=== PATIENT | male | born 1970 | race Caucasian/White ===

== ENCOUNTER 2021-01-03 11:15 | Inpatient (IN) | payer OTHER ==
[2021-01-03 12:43] VITALS: BMI 31.6
[2021-01-03] MEDS ORDERED: ONDANSETRON *ODT* 4 MG TABLET SL PRN (13:32)
[2021-01-03] MEDS ORDERED: chlordiazePOXIDE HCL 25 MG CAPSULE PO PRN (13:32)
[2021-01-03] MEDS ORDERED: MENTHOL/PHENOL 1 EACH UD MM PRN (13:32)
[2021-01-03] MEDS ORDERED: NICOTINE POLACRILEX 2 MG GUM BUC PRN (13:32)
[2021-01-03] MEDS ORDERED: ACETAMINOPHEN 325 MG TABLET (FP) PO PRN ×2 (13:32)
[2021-01-03] MEDS ORDERED: MAGNESIUM CITRATE 300 ML BOTTLE PO PRN (13:32)
[2021-01-03] MEDS ORDERED: BISMUTH SUBSALICYLATE 262 MG/15 ML BTL PO PRN (13:32)
[2021-01-03] MEDS ORDERED: MAG HYDROX/AL HYDROX/SIMETH 30 ML UNIT-DOSE CUP PO PRN (13:32)
[2021-01-03] MEDS ORDERED: NALOXONE (NARCAN) HCL 4 MG/0.1 ML SPRAY NS PRN (13:32)
[2021-01-03] MEDS ORDERED: MAGNESIUM HYDROX 2400MG/30ML ORAL SUSPENSION 30 ML CUP PO PRN (13:32)
[2021-01-03] MEDS: PANTOPRAZOLE 40 MG TABLET PO SCH (14:12)
[2021-01-03] MEDS: hydrOXYzine PAMOATE 25 MG CAPSULE (FP) PO SCH ×3 (14:12→22:02)
[2021-01-03] MEDS: PRENATAL VITAMINS W/ FOLIC ACID TABLET (FP) PO SCH (14:13)
[2021-01-03] MEDS: NICOTINE 21 MG/24 HOURS TOPICAL PATCH TD SCH (14:18)
[2021-01-03 14:48] LABS: HEMATOCRIT 40.2 % (35.4-49); HEMOGLOBIN 13.7 GM/dL (11.7-16.9); MCH 32.4 pg (25.7-33.7); MEAN CELL VOLUME 95.4 fl (80-96); MEAN PLT VOLUME 9.6 fl (7.5-11.1); PLATELET COUNT 247 K/MM3 (134-434); RBC 4.21 M/mm3 (4.00-5.60); RDW 12.6 % (11.9-15.9); WHITE BLOOD COUNT 7.3 K/mm3 (4.0-10.0)
[2021-01-03 14:52] LABS: ALBUMIN 3.4 g/dl (3.4-5.0); CALCIUM 8.8 mg/dL (8.5-10.1)
[2021-01-03 14:53] LABS: BLOOD UREA NITROGEN 3.7 mg/dL (7-18)
[2021-01-03 14:56] LABS: CREATININE 0.7 mg/dL (0.55-1.3)
[2021-01-03 14:57] LABS: BILIRUBIN,TOTAL 0.4 mg/dL (0.2-1); TOT PROT 6.5 g/dl (6.4-8.2)
[2021-01-03] MEDS: chlordiazePOXIDE HCL 25 MG CAPSULE PO SCH ×2 (17:27→22:02)
[2021-01-03] MEDS ORDERED: GABAPENTIN 300 MG CAPSULE PO SCH (22:00)
[2021-01-03] MEDS: MELATONIN 5 MG TABLETS PO SCH (22:01)
[2021-01-03] MEDS: GABAPENTIN 100 MG CAPSULE PO SCH (22:02)
[2021-01-03] MEDS: THIAMINE HCL 100 MG TABLET (FP) PO SCH (22:02)
[2021-01-03] MEDS: PERPHENAZINE 4 MG TABLET PO SCH (22:03)
[2021-01-03] MEDS: METHOCARBAMOL 500 MG TABLET PO PRN (22:05)
[2021-01-04] MEDS ORDERED: METHADONE HCL 40 MG DISPERSABLE TABLET ONE (05:22)
[2021-01-04] MEDS ORDERED: METHADONE HCL 10 MG TABLET ONE (05:22)
[2021-01-04] MEDS: METHADONE 40 MG, METHADONE 10 MG PO SCH (05:34)
[2021-01-04] MEDS: GABAPENTIN 100 MG CAPSULE PO SCH ×3 (05:34→22:07)
[2021-01-04] MEDS: hydrOXYzine PAMOATE 25 MG CAPSULE (FP) PO SCH ×2 (05:35→10:04)
[2021-01-04] MEDS: chlordiazePOXIDE HCL 25 MG CAPSULE PO SCH ×4 (05:36→22:06)
[2021-01-04] MEDS: PERPHENAZINE 4 MG TABLET PO SCH ×3 (05:38→22:07)
[2021-01-04] MEDS ORDERED: METHADONE HCL 10 MG TABLET PO SCH (06:00)
[2021-01-04] MEDS: PRENATAL VITAMINS W/ FOLIC ACID TABLET (FP) PO SCH (10:04)
[2021-01-04] MEDS: NICOTINE 21 MG/24 HOURS TOPICAL PATCH TD SCH (10:04)
[2021-01-04] MEDS: PANTOPRAZOLE 40 MG TABLET PO SCH (10:04)
[2021-01-04] MEDS: IBUPROFEN 400 MG TABLET (FP) PO PRN (13:06)
[2021-01-04] MEDS: hydrOXYzine PAMOATE 25 MG CAPSULE (FP) PO PRN (13:06)
[2021-01-04] MEDS: THIAMINE HCL 100 MG TABLET (FP) PO SCH (22:07)
[2021-01-04] MEDS: MELATONIN 5 MG TABLETS PO SCH (22:07)
[2021-01-05] MEDS ORDERED: METHADONE HCL 40 MG DISPERSABLE TABLET ONE (04:21)
[2021-01-05] MEDS ORDERED: METHADONE HCL 10 MG TABLET ONE (04:21)
[2021-01-05] MEDS: IBUPROFEN 400 MG TABLET (FP) PO PRN ×2 (04:40→17:19)
[2021-01-05] MEDS: GABAPENTIN 100 MG CAPSULE PO SCH ×3 (05:19→22:28)
[2021-01-05] MEDS: chlordiazePOXIDE HCL 25 MG CAPSULE PO SCH ×4 (05:19→22:29)
[2021-01-05] MEDS: METHADONE 40 MG, METHADONE 10 MG PO SCH (05:19)
[2021-01-05] MEDS: METHOCARBAMOL 500 MG TABLET PO PRN ×2 (05:21→22:31)
[2021-01-05] MEDS: PERPHENAZINE 4 MG TABLET PO SCH ×3 (05:24→22:30)
[2021-01-05] MEDS: NICOTINE 21 MG/24 HOURS TOPICAL PATCH TD SCH (09:31)
[2021-01-05] MEDS: PANTOPRAZOLE 40 MG TABLET PO SCH (10:01)
[2021-01-05] MEDS: PRENATAL VITAMINS W/ FOLIC ACID TABLET (FP) PO SCH (10:01)
[2021-01-05] MEDS ORDERED: LIDOCAINE 5% TOPICAL PATCH TP SCH (11:15)
[2021-01-05] MEDS ORDERED: BACITRACIN 0.9 GM PACKET TP SCH (15:00)
[2021-01-05] MEDS ORDERED: LIDOCAINE PATCH REMOVAL MC SCH (22:00)
[2021-01-05] MEDS: THIAMINE HCL 100 MG TABLET (FP) PO SCH (22:28)
[2021-01-05] MEDS: MELATONIN 5 MG TABLETS PO SCH (22:28)
[2021-01-05] MEDS: hydrOXYzine PAMOATE 25 MG CAPSULE (FP) PO PRN (22:31)
[2021-01-06] MEDS ORDERED: chlordiazePOXIDE HCL 10 MG CAPSULE PO PRN
[2021-01-06] MEDS ORDERED: METHADONE HCL 40 MG DISPERSABLE TABLET ONE (02:34)
[2021-01-06] MEDS ORDERED: METHADONE HCL 10 MG TABLET ONE (02:34)
[2021-01-06] MEDS ORDERED: chlordiazePOXIDE HCL 10 MG CAPSULE PO SCH (05:00)
[2021-01-06] MEDS: METHADONE 40 MG, METHADONE 10 MG PO SCH (05:41)
[2021-01-06] MEDS: GABAPENTIN 100 MG CAPSULE PO SCH (05:41)
[2021-01-06] MEDS: PERPHENAZINE 4 MG TABLET PO SCH (05:44)
[2021-01-06] MEDS: IBUPROFEN 400 MG TABLET (FP) PO PRN (06:41)
[2021-01-06 09:17] VITALS: BP 107/64; PULSE 82; TEMP 96.6
[2021-01-07] MEDS ORDERED: chlordiazePOXIDE HCL 10 MG CAPSULE PO SCH (05:00)
[2021-01-07 06:06] LABS: SARS-CoV-2 NAA Not Detected (Not Detected)
[2021-01-08] MEDS ORDERED: chlordiazePOXIDE HCL 10 MG CAPSULE PO ONE (05:00)
== END 2021-01-06 09:27 | disposition other institution (70) | DRG 773 ==
LOC: YASAS 11:15 → Y3N 13:04
PROVIDERS: ADMIT Allergy & Immunology; ATTEND Allergy & Immunology
PROC: HZ2ZZZZ Detoxification Services for Substance Abuse Treatment (ICD-10-PCS; principal; 2021-01-03)
DX: F10.230 Alcohol dependence with withdrawal, uncomplicated (principal); F14.20 Cocaine dependence, uncomplicated; F11.20 Opioid dependence, uncomplicated; F17.210 Nicotine dependence, cigarettes, uncomplicated; F25.9 Schizoaffective disorder, unspecified; F19.24 Other psychoactive substance dependence with psychoactive substance-induced mood disorder; K21.9 Gastro-esophageal reflux disease without esophagitis; M54.2 Cervicalgia; M54.6 Pain in thoracic spine; G89.29 Other chronic pain; Z98.84 Bariatric surgery status
CPT/HCPCS: 36415; 80053; 85027; 86780; 93005; 93010; C9803; Q0162; U0003; U0005

== ENCOUNTER 2021-09-26 15:34 | Inpatient (IN) | payer OTHER ==
[2021-09-26 19:22] VITALS: BMI 33.2
[2021-09-26] MEDS ORDERED: BISMUTH SUBSALICYLATE 524 MG/30 ML PO PRN (19:46)
[2021-09-26] MEDS ORDERED: MAGNESIUM CITRATE 300 ML BOTTLE PO PRN (19:46)
[2021-09-26] MEDS ORDERED: MAGNESIUM HYDROX 2400MG/30ML ORAL SUSPENSION 30 ML CUP PO PRN (19:46)
[2021-09-26] MEDS ORDERED: hydrOXYzine PAMOATE 25 MG CAPSULE (FP) PO PRN (19:46)
[2021-09-26] MEDS ORDERED: ONDANSETRON *ODT* 4 MG TABLET SL PRN (19:46)
[2021-09-26] MEDS ORDERED: MAG HYDROX/AL HYDROX/SIMETH 30 ML UNIT-DOSE CUP PO PRN (19:46)
[2021-09-26] MEDS ORDERED: METHOCARBAMOL 500 MG TABLET PO PRN (19:46)
[2021-09-26] MEDS ORDERED: ACETAMINOPHEN 325 MG TABLET (FP) PO PRN ×2 (19:46)
[2021-09-26] MEDS ORDERED: MENTHOL/PHENOL 1 EACH UD MM PRN (19:46)
[2021-09-27] MEDS ORDERED: chlordiazePOXIDE HCL 25 MG CAPSULE ONE (02:19)
[2021-09-27] MEDS ORDERED: IBUPROFEN 400 MG TABLET (FP) PO ONE (02:19)
[2021-09-27] MEDS: MELATONIN 5 MG TABLETS PO SCH ×2 (02:23→22:21)
[2021-09-27] MEDS: THIAMINE HCL 100 MG TABLET (FP) PO SCH ×2 (02:23→22:21)
[2021-09-27] MEDS: chlordiazePOXIDE HCL 25 MG CAPSULE PO SCH ×5 (02:24→22:30)
[2021-09-27] MEDS: IBUPROFEN 400 MG TABLET (FP) PO PRN ×2 (02:25→17:46)
[2021-09-27] MEDS ORDERED: methaDONE HCL 10 MG TABLET ONE (09:20)
[2021-09-27] MEDS ORDERED: methaDONE HCL 10 MG TABLET PO ONE (10:00)
[2021-09-27] MEDS: PRENATAL VITAMINS W/ FOLIC ACID TABLET (FP) PO SCH (10:21)
[2021-09-27 10:31] LABS: HEMATOCRIT 34.1 % (35.4-49); HEMOGLOBIN 11.1 GM/dL (11.7-16.9); MCH 30.6 pg (25.7-33.7); MCHC 32.7 g/dl (32.0-35.9); MEAN CELL VOLUME 93.6 fl (80-96); MEAN PLT VOLUME 9.1 fl (7.5-11.1); PLATELET COUNT 261 10^3/uL (134-434); RBC 3.64 M/mm3 (4.00-5.60); RDW 14.2 % (11.9-15.9); WHITE BLOOD COUNT 6.3 K/mm3 (4.0-10.0)
[2021-09-27] MEDS ORDERED: NICOTINE 10 MG CARTRIDGE (INHALER) IH PRN (10:36)
[2021-09-27] MEDS: NICOTINE POLACRILEX 2 MG GUM BUC PRN (10:53)
[2021-09-27] MEDS: NICOTINE 14 MG/24 HOURS TOPICAL PATCH TD SCH (10:53)
[2021-09-27] MEDS: SERTRALINE HCL 50 MG TABLET (FP) PO SCH (10:54)
[2021-09-27] MEDS: ARIPiprazole 10 MG TABLET PO SCH (10:54)
[2021-09-27] MEDS: GABAPENTIN 400 MG CAPSULE PO SCH ×2 (10:54→22:20)
[2021-09-27 10:55] LABS: CALCIUM 9.3 mg/dL (8.5-10.1)
[2021-09-27 10:57] LABS: ALBUMIN 3.1 g/dl (3.4-5.0); BLOOD UREA NITROGEN 10.4 mg/dL (7-18)
[2021-09-27 10:59] LABS: CREATININE 0.7 mg/dL (0.55-1.3)
[2021-09-27 11:01] LABS: BILIRUBIN,TOTAL 0.8 mg/dL (0.2-1); TOT PROT 5.8 g/dl (6.4-8.2)
[2021-09-27] MEDS: PERPHENAZINE 4 MG TABLET PO SCH ×2 (12:10→22:21)
[2021-09-27] MEDS: chlordiazePOXIDE HCL 25 MG CAPSULE PO PRN ×2 (14:53→22:21)
[2021-09-27] MEDS ORDERED: FAMOTIDINE 20 MG TABLET PO SCH (22:00)
[2021-09-27] MEDS ORDERED: traZODone HCL 50 MG TABLET (FP) PO SCH (22:00)
[2021-09-28] MEDS ORDERED: methaDONE HCL 10 MG TABLET ONE (04:01)
[2021-09-28] MEDS ORDERED: chlordiazePOXIDE HCL 25 MG CAPSULE PO SCH (05:00)
[2021-09-28] MEDS: IBUPROFEN 400 MG TABLET (FP) PO PRN (05:28)
[2021-09-28] MEDS: NICOTINE POLACRILEX 2 MG GUM BUC PRN (05:55)
[2021-09-28] MEDS ORDERED: methaDONE HCL 40 MG DISPERSABLE TABLET PO SCH (06:00)
[2021-09-28 09:20] VITALS: BP 120/70; PULSE 84; TEMP 98.4
[2021-09-28] MEDS: NICOTINE 14 MG/24 HOURS TOPICAL PATCH TD SCH (09:29)
[2021-09-28] MEDS ORDERED: PANTOPRAZOLE 40 MG TABLET PO SCH (10:00)
[2021-09-28] MEDS: ARIPiprazole 10 MG TABLET PO SCH (10:37)
[2021-09-28] MEDS: GABAPENTIN 400 MG CAPSULE PO SCH (10:37)
[2021-09-28] MEDS: PRENATAL VITAMINS W/ FOLIC ACID TABLET (FP) PO SCH (10:37)
[2021-09-28] MEDS: SERTRALINE HCL 50 MG TABLET (FP) PO SCH (10:38)
[2021-09-28] MEDS: PERPHENAZINE 4 MG TABLET PO SCH (10:38)
[2021-09-29] MEDS ORDERED: chlordiazePOXIDE HCL 10 MG CAPSULE PO PRN
[2021-09-29] MEDS ORDERED: chlordiazePOXIDE HCL 10 MG CAPSULE PO SCH (05:00)
[2021-09-30] MEDS ORDERED: chlordiazePOXIDE HCL 10 MG CAPSULE PO SCH (05:00)
[2021-10-01] MEDS ORDERED: chlordiazePOXIDE HCL 10 MG CAPSULE PO ONE (05:00)
== END 2021-09-28 10:40 | disposition left against medical advice (07) | DRG 894 ==
LOC: YASAS 15:34 → Y6N 09-27 02:08
PROVIDERS: ADMIT Allergy & Immunology; ATTEND Allergy & Immunology
PROC: HZ2ZZZZ Detoxification Services for Substance Abuse Treatment (ICD-10-PCS; principal; 2021-09-27)
DX: F10.230 Alcohol dependence with withdrawal, uncomplicated (principal); F11.20 Opioid dependence, uncomplicated; F14.20 Cocaine dependence, uncomplicated; F19.282 Other psychoactive substance dependence with psychoactive substance-induced sleep disorder; E87.0 Hyperosmolality and hypernatremia; F17.210 Nicotine dependence, cigarettes, uncomplicated; F25.9 Schizoaffective disorder, unspecified; F19.24 Other psychoactive substance dependence with psychoactive substance-induced mood disorder; K21.9 Gastro-esophageal reflux disease without esophagitis; R73.9 Hyperglycemia, unspecified; G89.29 Other chronic pain; Z98.84 Bariatric surgery status; Z56.0 Unemployment, unspecified
CPT/HCPCS: 36415; 80053; 85027; 86780; C9803; U0003; U0005

== ENCOUNTER 2021-10-16 12:45 | Inpatient (IN) | payer OTHER ==
[2021-10-16] MEDS ORDERED: ONDANSETRON *ODT* 4 MG TABLET SL PRN (14:37)
[2021-10-16] MEDS ORDERED: BISMUTH SUBSALICYLATE 262 MG/15 ML BTL PO PRN (14:37)
[2021-10-16] MEDS ORDERED: MAGNESIUM HYDROX 2400MG/30ML ORAL SUSPENSION 30 ML CUP PO PRN (14:37)
[2021-10-16] MEDS ORDERED: NICOTINE 10 MG CARTRIDGE (INHALER) IH PRN (14:37)
[2021-10-16] MEDS ORDERED: ACETAMINOPHEN 325 MG TABLET (FP) PO PRN (14:37)
[2021-10-16] MEDS ORDERED: MENTHOL/PHENOL 1 EACH UD MM PRN (14:37)
[2021-10-16] MEDS ORDERED: LOPERAMIDE HCL 2 MG CAPSULE PO PRN (14:37)
[2021-10-16] MEDS ORDERED: IBUPROFEN 400 MG TABLET (FP) PO PRN (14:37)
[2021-10-16] MEDS ORDERED: MAGNESIUM CITRATE 300 ML BOTTLE PO PRN (14:37)
[2021-10-16] MEDS ORDERED: chlordiazePOXIDE HCL 25 MG CAPSULE PO PRN (14:37)
[2021-10-16] MEDS ORDERED: MAG HYDROX/AL HYDROX/SIMETH 30 ML UNIT-DOSE CUP PO PRN (14:37)
[2021-10-16 15:17] VITALS: BMI 33.3
[2021-10-16] MEDS ORDERED: chlordiazePOXIDE HCL 25 MG CAPSULE ONE (16:18)
[2021-10-16] MEDS: chlordiazePOXIDE HCL 25 MG CAPSULE PO SCH ×4 (16:20→22:18)
[2021-10-16] MEDS: hydrOXYzine PAMOATE 25 MG CAPSULE (FP) PO SCH ×2 (17:17→22:19)
[2021-10-16] MEDS: THIAMINE HCL 100 MG TABLET (FP) PO SCH (22:19)
[2021-10-16] MEDS: MELATONIN 5 MG TABLETS PO SCH (22:19)
[2021-10-16] MEDS: METHOCARBAMOL 500 MG TABLET PO PRN (22:20)
[2021-10-17] MEDS: METHOCARBAMOL 500 MG TABLET PO PRN ×2 (05:12→22:08)
[2021-10-17] MEDS: hydrOXYzine PAMOATE 25 MG CAPSULE (FP) PO SCH ×5 (05:12→22:08)
[2021-10-17] MEDS: chlordiazePOXIDE HCL 25 MG CAPSULE PO SCH ×4 (05:12→22:09)
[2021-10-17] MEDS ORDERED: methaDONE HCL 10 MG TABLET PO SCH (09:45)
[2021-10-17] MEDS: PANTOPRAZOLE 40 MG TABLET PO SCH (10:25)
[2021-10-17] MEDS: PRENATAL VITAMINS W/ FOLIC ACID TABLET (FP) PO SCH (10:25)
[2021-10-17] MEDS ORDERED: methaDONE HCL 10 MG TABLET ONE (10:41)
[2021-10-17 12:23] LABS: HEMATOCRIT 37.5 % (35.4-49); HEMOGLOBIN 12.4 GM/dL (11.7-16.9); MCH 30.7 pg (25.7-33.7); MCHC 33.2 g/dl (32.0-35.9); MEAN CELL VOLUME 92.6 fl (80-96); MEAN PLT VOLUME 9.1 fl (7.5-11.1); PLATELET COUNT 267 10^3/uL (134-434); RBC 4.05 M/mm3 (4.00-5.60); RDW 14.2 % (11.9-15.9); WHITE BLOOD COUNT 5.6 K/mm3 (4.0-10.0)
[2021-10-17 12:39] LABS: CALCIUM 8.9 mg/dL (8.5-10.1)
[2021-10-17 12:40] LABS: BLOOD UREA NITROGEN 9.1 mg/dL (7-18)
[2021-10-17 12:42] LABS: CREATININE 0.8 mg/dL (0.55-1.3)
[2021-10-17 12:44] LABS: BILIRUBIN,TOTAL 0.8 mg/dL (0.2-1); TOT PROT 6.1 g/dl (6.4-8.2)
[2021-10-17] MEDS: NICOTINE 21 MG/24 HOURS TOPICAL PATCH TD SCH (13:20)
[2021-10-17] MEDS: SERTRALINE HCL 50 MG TABLET (FP) PO SCH (14:30)
[2021-10-17] MEDS: PERPHENAZINE 4 MG TABLET PO SCH ×3 (14:30→22:08)
[2021-10-17] MEDS: ACETAMINOPHEN 325 MG TABLET (FP) PO PRN (22:07)
[2021-10-17] MEDS: MELATONIN 5 MG TABLETS PO SCH (22:07)
[2021-10-17] MEDS: THIAMINE HCL 100 MG TABLET (FP) PO SCH (22:08)
[2021-10-18] MEDS ORDERED: chlordiazePOXIDE HCL 10 MG CAPSULE PO PRN
[2021-10-18] MEDS ORDERED: methaDONE HCL 10 MG TABLET ONE (04:18)
[2021-10-18 05:07] LABS: SARS-CoV-2 NAA Not Detected (Not Detected)
[2021-10-18] MEDS: hydrOXYzine PAMOATE 25 MG CAPSULE (FP) PO SCH ×3 (05:33→14:09)
[2021-10-18] MEDS: chlordiazePOXIDE HCL 10 MG CAPSULE PO SCH ×2 (05:33→10:10)
[2021-10-18] MEDS: ACETAMINOPHEN 325 MG TABLET (FP) PO PRN (05:39)
[2021-10-18] MEDS ORDERED: ARIPiprazole 15 MG TABLET PO SCH (10:00)
[2021-10-18] MEDS: PRENATAL VITAMINS W/ FOLIC ACID TABLET (FP) PO SCH (10:08)
[2021-10-18] MEDS: SERTRALINE HCL 50 MG TABLET (FP) PO SCH (10:08)
[2021-10-18] MEDS: PANTOPRAZOLE 40 MG TABLET PO SCH (10:08)
[2021-10-18] MEDS: NICOTINE 21 MG/24 HOURS TOPICAL PATCH TD SCH (10:11)
[2021-10-18] MEDS: PERPHENAZINE 4 MG TABLET PO SCH ×2 (10:12→14:14)
[2021-10-18 13:17] LABS: GLUCOSE,FASTING 55 mg/dL (74-106)
[2021-10-18 14:13] LABS: ALK PHOS 174 U/L (45-117)
[2021-10-18 18:21] VITALS: BP 124/71; PULSE 83; TEMP 98
[2021-10-19] MEDS ORDERED: chlordiazePOXIDE HCL 10 MG CAPSULE PO SCH (05:00)
[2021-10-20] MEDS ORDERED: chlordiazePOXIDE HCL 10 MG CAPSULE PO ONE (05:00)
== END 2021-10-18 18:00 | disposition left against medical advice (07) | DRG 894 ==
LOC: YASAS 12:45 → Y3N 16:35
PROVIDERS: ADMIT Allergy & Immunology; ATTEND Allergy & Immunology
PROC: HZ2ZZZZ Detoxification Services for Substance Abuse Treatment (ICD-10-PCS; principal; 2021-10-16)
DX: F10.230 Alcohol dependence with withdrawal, uncomplicated (principal); F11.20 Opioid dependence, uncomplicated; F14.20 Cocaine dependence, uncomplicated; F19.282 Other psychoactive substance dependence with psychoactive substance-induced sleep disorder; F17.210 Nicotine dependence, cigarettes, uncomplicated; F19.24 Other psychoactive substance dependence with psychoactive substance-induced mood disorder; F25.9 Schizoaffective disorder, unspecified; K21.9 Gastro-esophageal reflux disease without esophagitis; R73.9 Hyperglycemia, unspecified; E66.09 Other obesity due to excess calories; Z68.33 Body mass index [BMI] 33.0-33.9, adult
CPT/HCPCS: 36415; 80053; 82947; 83036; 84075; 85027; 86780; 93005; 93010; C9803; U0003; U0005

== ENCOUNTER 2021-11-15 10:33 | Inpatient (IN) | payer OTHER ==
[2021-11-15] MEDS ORDERED: ACETAMINOPHEN 325 MG TABLET (FP) PO PRN ×2 (11:42)
[2021-11-15] MEDS ORDERED: MENTHOL/PHENOL 1 EACH UD MM PRN (11:42)
[2021-11-15] MEDS ORDERED: BISMUTH SUBSALICYLATE 262 MG/15 ML BTL PO PRN (11:42)
[2021-11-15] MEDS ORDERED: MAGNESIUM CITRATE 300 ML BOTTLE PO PRN (11:42)
[2021-11-15] MEDS ORDERED: LOPERAMIDE HCL 2 MG CAPSULE PO PRN (11:42)
[2021-11-15] MEDS ORDERED: MAGNESIUM HYDROX 2400MG/30ML ORAL SUSPENSION 30 ML CUP PO PRN (11:42)
[2021-11-15 12:12] VITALS: BMI 31.3
[2021-11-15] MEDS ORDERED: TRIMETHOBENZAMIDE HCL 300 MG CAPSULE PO PRN ×2 (12:45→13:30)
[2021-11-15] MEDS: chlordiazePOXIDE HCL 25 MG CAPSULE PO PRN (13:27)
[2021-11-15] MEDS ORDERED: hydrOXYzine PAMOATE 25 MG CAPSULE (FP) PO SCH (14:00)
[2021-11-15] MEDS ORDERED: TRIMETHOBENZAMIDE HCL 200MG/2ML INJ IM PRN (14:01)
[2021-11-15] MEDS: GABAPENTIN 400 MG CAPSULE PO SCH ×2 (15:41→22:30)
[2021-11-15] MEDS: NICOTINE 14 MG/24 HOURS TOPICAL PATCH TD SCH (15:42)
[2021-11-15] MEDS: PRENATAL VITAMINS W/ FOLIC ACID TABLET (FP) PO SCH (15:43)
[2021-11-15 17:18] LABS: HEMATOCRIT 44.3 % (35.4-49); HEMOGLOBIN 14.4 GM/dL (11.7-16.9); MCH 30.3 pg (25.7-33.7); MCHC 32.6 g/dl (32.0-35.9); MEAN CELL VOLUME 92.8 fl (80-96); MEAN PLT VOLUME 8.9 fl (7.5-11.1); PLATELET COUNT 289 10^3/uL (134-434); RBC 4.78 M/mm3 (4.00-5.60); RDW 15.1 % (11.9-15.9); WHITE BLOOD COUNT 6.8 K/mm3 (4.0-10.0)
[2021-11-15 17:20] LABS: CALCIUM 8.8 mg/dL (8.5-10.1)
[2021-11-15 17:21] LABS: ALBUMIN 3.8 g/dl (3.4-5.0); BLOOD UREA NITROGEN 14.2 mg/dL (7-18)
[2021-11-15 17:24] LABS: CREATININE 0.9 mg/dL (0.55-1.3)
[2021-11-15 17:25] LABS: TOT PROT 6.7 g/dl (6.4-8.2)
[2021-11-15] MEDS: chlordiazePOXIDE HCL 25 MG CAPSULE PO SCH ×2 (18:05→22:26)
[2021-11-15] MEDS: METHOCARBAMOL 500 MG TABLET PO PRN (18:06)
[2021-11-15] MEDS: THIAMINE HCL 100 MG TABLET (FP) PO SCH (22:27)
[2021-11-15] MEDS: MELATONIN 5 MG TABLETS PO SCH (22:27)
[2021-11-15] MEDS: IBUPROFEN 400 MG TABLET (FP) PO PRN (22:28)
[2021-11-15] MEDS: PERPHENAZINE 4 MG TABLET PO SCH (23:41)
[2021-11-16] MEDS: chlordiazePOXIDE HCL 25 MG CAPSULE PO SCH ×4 (05:43→22:22)
[2021-11-16] MEDS: GABAPENTIN 400 MG CAPSULE PO SCH ×3 (06:58→21:35)
[2021-11-16] MEDS: NICOTINE 14 MG/24 HOURS TOPICAL PATCH TD SCH (10:09)
[2021-11-16] MEDS: SERTRALINE HCL 50 MG TABLET (FP) PO SCH (10:09)
[2021-11-16] MEDS: PANTOPRAZOLE 40 MG TABLET PO SCH (10:09)
[2021-11-16] MEDS: PRENATAL VITAMINS W/ FOLIC ACID TABLET (FP) PO SCH (10:10)
[2021-11-16] MEDS: PERPHENAZINE 4 MG TABLET PO SCH ×4 (10:11→21:35)
[2021-11-16] MEDS: NICOTINE 10 MG CARTRIDGE (INHALER) IH PRN (10:13)
[2021-11-16] MEDS ORDERED: methaDONE HCL 10 MG TABLET PO SCH (10:15)
[2021-11-16] MEDS ORDERED: methaDONE HCL 10 MG TABLET ONE (10:50)
[2021-11-16] MEDS: ARIPiprazole 5 MG TABLET PO SCH (12:20)
[2021-11-16] MEDS: IBUPROFEN 400 MG TABLET (FP) PO PRN ×2 (12:20→21:43)
[2021-11-16] MEDS: MELATONIN 5 MG TABLETS PO SCH (21:33)
[2021-11-16] MEDS: THIAMINE HCL 100 MG TABLET (FP) PO SCH (21:34)
[2021-11-17] MEDS ORDERED: methaDONE HCL 10 MG TABLET ONE (04:37)
[2021-11-17] MEDS: chlordiazePOXIDE HCL 25 MG CAPSULE PO SCH ×4 (05:27→22:06)
[2021-11-17] MEDS: GABAPENTIN 400 MG CAPSULE PO SCH ×3 (05:27→21:55)
[2021-11-17 08:08] LABS: SARS-CoV-2 NAA Not Detected (Not Detected)
[2021-11-17] MEDS: PANTOPRAZOLE 40 MG TABLET PO SCH (10:11)
[2021-11-17] MEDS: PRENATAL VITAMINS W/ FOLIC ACID TABLET (FP) PO SCH (10:11)
[2021-11-17] MEDS: SERTRALINE HCL 50 MG TABLET (FP) PO SCH (10:12)
[2021-11-17] MEDS: NICOTINE 10 MG CARTRIDGE (INHALER) IH PRN ×2 (10:13→14:06)
[2021-11-17] MEDS: NICOTINE 14 MG/24 HOURS TOPICAL PATCH TD SCH (10:17)
[2021-11-17] MEDS: MAG HYDROX/AL HYDROX/SIMETH 30 ML UNIT-DOSE CUP PO PRN (10:51)
[2021-11-17] MEDS: PERPHENAZINE 4 MG TABLET PO SCH ×4 (10:55→21:54)
[2021-11-17] MEDS: ARIPiprazole 5 MG TABLET PO SCH (10:55)
[2021-11-17] MEDS: chlordiazePOXIDE HCL 25 MG CAPSULE PO PRN (14:05)
[2021-11-17] MEDS: MELATONIN 5 MG TABLETS PO SCH (21:55)
[2021-11-17] MEDS: THIAMINE HCL 100 MG TABLET (FP) PO SCH (21:55)
[2021-11-17] MEDS: METHOCARBAMOL 500 MG TABLET PO PRN (21:58)
[2021-11-18] MEDS ORDERED: chlordiazePOXIDE HCL 10 MG CAPSULE PO PRN
[2021-11-18] MEDS ORDERED: methaDONE HCL 10 MG TABLET ONE (04:32)
[2021-11-18] MEDS: GABAPENTIN 400 MG CAPSULE PO SCH (05:07)
[2021-11-18] MEDS: chlordiazePOXIDE HCL 10 MG CAPSULE PO SCH ×2 (05:08→10:37)
[2021-11-18] MEDS: NICOTINE 10 MG CARTRIDGE (INHALER) IH PRN (05:48)
[2021-11-18] MEDS: MAG HYDROX/AL HYDROX/SIMETH 30 ML UNIT-DOSE CUP PO PRN (07:10)
[2021-11-18 08:36] VITALS: BP 128/86; PULSE 104; TEMP 96.3
[2021-11-18] MEDS: PRENATAL VITAMINS W/ FOLIC ACID TABLET (FP) PO SCH (10:37)
[2021-11-18] MEDS: ARIPiprazole 5 MG TABLET PO SCH (10:37)
[2021-11-18] MEDS: NICOTINE 14 MG/24 HOURS TOPICAL PATCH TD SCH (10:37)
[2021-11-18] MEDS: SERTRALINE HCL 50 MG TABLET (FP) PO SCH (10:37)
[2021-11-18] MEDS: PANTOPRAZOLE 40 MG TABLET PO SCH (10:37)
[2021-11-18] MEDS: PERPHENAZINE 4 MG TABLET PO SCH (10:37)
[2021-11-19] MEDS ORDERED: chlordiazePOXIDE HCL 10 MG CAPSULE PO SCH (05:00)
[2021-11-20] MEDS ORDERED: chlordiazePOXIDE HCL 10 MG CAPSULE PO ONE (05:00)
== END 2021-11-18 09:12 | disposition home or self-care (01) | DRG 897 ==
LOC: YASAS 10:33 → Y3N 12:08
PROVIDERS: ADMIT Allergy & Immunology; ATTEND Allergy & Immunology
PROC: HZ2ZZZZ Detoxification Services for Substance Abuse Treatment (ICD-10-PCS; principal; 2021-11-15)
DX: F10.230 Alcohol dependence with withdrawal, uncomplicated (principal); F14.20 Cocaine dependence, uncomplicated; F17.210 Nicotine dependence, cigarettes, uncomplicated; F25.9 Schizoaffective disorder, unspecified; F19.24 Other psychoactive substance dependence with psychoactive substance-induced mood disorder; K21.9 Gastro-esophageal reflux disease without esophagitis; G47.00 Insomnia, unspecified; M54.2 Cervicalgia; G89.4 Chronic pain syndrome; M54.50 Low back pain, unspecified; M54.6 Pain in thoracic spine
CPT/HCPCS: 36415; 80053; 85027; 86780; 87811; 93005; 93010; C9803-CS; U0003; U0005

== ENCOUNTER 2021-12-19 10:57 | Emergency (ER) | payer OTHER ==
[2021-12-19 11:03] VITALS: BP 147/89; PULSE 132; TEMP 98.7; BMI 32.5
[2021-12-19] MEDS ORDERED: diazePAM CARPU-JECT 10 MG/2 ML DISP.SYRIN IVPUSH ONE (11:38)
[2021-12-19] MEDS ORDERED: diazePAM CARPU-JECT 10 MG/2 ML DISP.SYRIN ONE (11:44)
[2021-12-19 12:11] LABS: BASO % 0.2 % (0-2.0); HEMATOCRIT 41.8 % (35.4-49); HEMOGLOBIN 14.4 GM/dL (11.7-16.9); LYMPH % 7.6 % (8-40); MCHC 34.3 g/dl (32.0-35.9); MEAN CELL VOLUME 90.2 fl (80-96); MONO % 6.2 % (3.8-10.2); PLATELET COUNT 235 10^3/uL (134-434); RBC 4.64 M/mm3 (4.00-5.60); RDW 16.2 % (11.9-15.9); WHITE BLOOD COUNT 6.6 K/mm3 (4.0-10.0)
[2021-12-19 12:23] LABS: VENOUS O2 SATURATION 72.6 % (70-80); VENOUS PCO2 59.7 mmHg (38-52)
[2021-12-19 12:26] LABS: VENOUS PH 7.153 (7.310-7.410)
[2021-12-19 12:31] LABS: CALCIUM 8.2 mg/dL (8.5-10.1)
[2021-12-19 12:32] LABS: ALBUMIN 3.3 g/dl (3.4-5.0); BLOOD UREA NITROGEN 11.3 mg/dL (7-18)
[2021-12-19] MEDS ORDERED: LACTATED RINGERS SOLUTION 1000 ML INFUS.BAG IV ONE (12:34)
[2021-12-19 12:35] LABS: CREATININE 0.9 mg/dL (0.55-1.3)
[2021-12-19 12:37] LABS: BILIRUBIN,TOTAL 2.5 mg/dL (0.2-1); TOT PROT 6.3 g/dl (6.4-8.2)
[2021-12-19] MEDS ORDERED: chlordiazePOXIDE HCL 25 MG CAPSULE PO ONE (13:10)
[2021-12-19] MEDS ORDERED: chlordiazePOXIDE HCL 25 MG CAPSULE ONE (13:15)
== END 2021-12-19 13:27 | disposition left against medical advice (07) ==
LOC: JER 10:57
PROC: 3E033NZ Introduction of Analgesics, Hypnotics, Sedatives into Peripheral Vein, Percutaneous Approach (ICD-10-PCS; principal; 2021-12-19)
DX: F10.239 Alcohol dependence with withdrawal, unspecified (principal)
CPT/HCPCS: 36415; 80053; 80307; 82803; 83735; 85025; 93005; 93010; 99284-25

== ENCOUNTER 2021-12-20 08:00 | Inpatient (IN) | payer OTHER ==
[2021-12-20 08:40] VITALS: BMI 29.8
[2021-12-20] MEDS ORDERED: BISMUTH SUBSALICYLATE 262 MG/15 ML BTL PO PRN (09:37)
[2021-12-20] MEDS ORDERED: DICYCLOMINE HCL 10 MG CAPSULE PO PRN (09:37)
[2021-12-20] MEDS ORDERED: BENZOCAINE/MENTHOL (CHLORASEPTIC ) LOZENGE MM PRN (09:37)
[2021-12-20] MEDS ORDERED: MAG HYDROX/AL HYDROX/SIMETH 30 ML UNIT-DOSE CUP PO PRN (09:37)
[2021-12-20] MEDS ORDERED: MAGNESIUM CITRATE 300 ML BOTTLE PO PRN (09:37)
[2021-12-20] MEDS ORDERED: LOPERAMIDE HCL 2 MG CAPSULE PO PRN (09:37)
[2021-12-20] MEDS ORDERED: MAGNESIUM HYDROX 2400MG/30ML ORAL SUSPENSION 30 ML CUP PO PRN (09:37)
[2021-12-20] MEDS ORDERED: ACETAMINOPHEN 325 MG TABLET (FP) PO PRN ×2 (09:37)
[2021-12-20] MEDS ORDERED: METHOCARBAMOL 500 MG TABLET PO PRN (09:37)
[2021-12-20] MEDS ORDERED: ONDANSETRON *ODT* 4 MG TABLET SL PRN (09:37)
[2021-12-20] MEDS ORDERED: IBUPROFEN 400 MG TABLET (FP) PO PRN (09:37)
[2021-12-20] MEDS ORDERED: PNEUMOC 13-VAL CONJ-DIP CRM/PF 0.5 ML DISP.SYRIN IM ONE (10:19)
[2021-12-20] MEDS: PANTOPRAZOLE 40 MG TABLET PO SCH (11:48)
[2021-12-20] MEDS: PRENATAL VITAMINS W/ FOLIC ACID TABLET (FP) PO SCH (11:48)
[2021-12-20] MEDS: hydrOXYzine PAMOATE 25 MG CAPSULE (FP) PO SCH ×4 (11:49→22:13)
[2021-12-20] MEDS: LORazepam 1 MG TABLET PO PRN ×2 (11:49→15:31)
[2021-12-20] MEDS ORDERED: PNEUMOCOCCAL 23 VACCINE 0.5 ML VIAL IM ONE (12:00)
[2021-12-20] MEDS: NICOTINE 7 MG/24 HOURS TOPICAL PATCH TD SCH (12:04)
[2021-12-20] MEDS ORDERED: methaDONE HCL 10 MG TABLET PO SCH (12:30)
[2021-12-20] MEDS ORDERED: methaDONE HCL 10 MG TABLET ONE (13:31)
[2021-12-20] MEDS: NICOTINE 10 MG CARTRIDGE (INHALER) IH PRN (15:34)
[2021-12-20] MEDS: LORazepam 2 MG TABLET PO SCH ×2 (18:05→22:11)
[2021-12-20] MEDS ORDERED: MELATONIN 5 MG TABLETS PO SCH (22:00)
[2021-12-20] MEDS ORDERED: THIAMINE HCL 100 MG TABLET (FP) PO SCH (22:00)
[2021-12-21] MEDS ORDERED: methaDONE HCL 10 MG TABLET ONE (04:07)
[2021-12-21] MEDS: LORazepam 2 MG TABLET PO SCH ×2 (05:07→10:27)
[2021-12-21] MEDS: hydrOXYzine PAMOATE 25 MG CAPSULE (FP) PO SCH ×2 (05:07→10:27)
[2021-12-21] MEDS: LORazepam 1 MG TABLET PO PRN (07:13)
[2021-12-21 09:35] VITALS: BP 134/73; PULSE 88; TEMP 97
[2021-12-21] MEDS: PANTOPRAZOLE 40 MG TABLET PO SCH (10:27)
[2021-12-21] MEDS: PRENATAL VITAMINS W/ FOLIC ACID TABLET (FP) PO SCH (10:27)
[2021-12-21] MEDS: NICOTINE 10 MG CARTRIDGE (INHALER) IH PRN (10:28)
[2021-12-21] MEDS: NICOTINE 7 MG/24 HOURS TOPICAL PATCH TD SCH (10:28)
[2021-12-21] MEDS ORDERED: PERPHENAZINE 4 MG TABLET PO ONE (11:16)
[2021-12-21] MEDS ORDERED: ARIPiprazole 10 MG TABLET PO ONE (11:17)
[2021-12-21] MEDS ORDERED: PERPHENAZINE 4 MG TABLET PO SCH (22:00)
[2021-12-22] MEDS ORDERED: LORazepam 1 MG TABLET PO SCH (05:00)
[2021-12-22 06:06] LABS: SARS-CoV-2 NAA Not Detected (Not Detected)
[2021-12-22] MEDS ORDERED: SERTRALINE HCL 50 MG TABLET (FP) PO ONE (11:16)
[2021-12-23] MEDS ORDERED: LORazepam 0.5 MG TABLET PO PRN
[2021-12-23] MEDS ORDERED: LORazepam 0.5 MG TABLET PO SCH (05:00)
[2021-12-24] MEDS ORDERED: LORazepam 0.5 MG TABLET PO ONE (05:00)
== END 2021-12-21 12:42 | disposition left against medical advice (07) | DRG 894 ==
LOC: YASAS 08:00 → Y6N 10:06
PROVIDERS: ADMIT Allergy & Immunology; ATTEND Allergy & Immunology
PROC: HZ2ZZZZ Detoxification Services for Substance Abuse Treatment (ICD-10-PCS; principal; 2021-12-20)
DX: F10.230 Alcohol dependence with withdrawal, uncomplicated (principal); F14.20 Cocaine dependence, uncomplicated; F11.20 Opioid dependence, uncomplicated; F17.210 Nicotine dependence, cigarettes, uncomplicated; F25.9 Schizoaffective disorder, unspecified; K21.9 Gastro-esophageal reflux disease without esophagitis; Z98.84 Bariatric surgery status
CPT/HCPCS: 36415; 86780; 87811; 90732; C9803-CS; G0009; U0003; U0005